=== PATIENT | male | born 1955 | race Caucasian/White ===

== ENCOUNTER 2017-02-12 17:10 | Emergency (ER) | payer OTHER ==
[2017-02-12 20:12] LABS: BASO % 0.1 % (0.2-1.2); EOS % 0.2 % (0.8-7.0); GRAN # 11.2 10_X3_uL (1.8-5.4); GRAN % 86.3 % (34.0-67.9); HEMATOCRIT 41.2 % (40-51); HEMOGLOBIN 14.1 g/dL (13.7-17.5); LYMPH # 0.8 10_X3_uL (1.3-3.6); LYMPH % 5.8 % (21.8-53.1); MEAN CORPUSCULAR HEMOGLOBIN 32.5 pg (27.0-33.0); MEAN CORPUSCULAR HGB CONC 34.2 g/dL (32.0-36.0); MEAN CORPUSCULAR VOLUME 94.9 fL (79-92); MONO % 7.6 % (5.3-12.2); PLATELET COUNT 179 x10_3/uL (163-337); RED BLOOD COUNT 4.34 x10_6/uL (4.6-6.1); RED CELL DISTRIBUTION WIDTH 12.6 % (11.6-14.4)
[2017-02-12 20:28] LABS: ALBUMIN 4.2 gm/dL (3.4-5.0); ALKALINE PHOSPHATASE 60 U/L (50-136); ALT/SGPT 25 U/L (7.53-40.17); AST/SGOT 40 U/L (6.66-35.34); BILIRUBIN,TOTAL 0.66 mg/dL (0.0-1.0); BLOOD UREA NITROGEN 17 mg/dL (7-18); CALCIUM 8.8 mg/dL (8.7-10.7); CARBON DIOXIDE 25 mmol/L (21-32); CREATININE 0.8 mg/dL (0.6-1.3); GLUCOSE,RANDOM 120 mg/dL (70-99); POTASSIUM 4.2 mmol/L (3.5-5.1); SODIUM 139 mmol/L (136-145)
== END 2017-02-12 22:14 | disposition short-term general hospital (02) ==
LOC: ER 17:10
PROVIDERS: Emergency Medicine
DX: S00.83XA Contusion of other part of head, initial encounter (principal); S20.219A Contusion of unspecified front wall of thorax, initial encounter; S40.029A Contusion of unspecified upper arm, initial encounter; S80.10XA Contusion of unspecified lower leg, initial encounter; S22.41XA Multiple fractures of ribs, right side, initial encounter for closed fracture; S32.019A Unspecified fracture of first lumbar vertebra, initial encounter for closed fracture; S32.029A Unspecified fracture of second lumbar vertebra, initial encounter for closed fracture; S32.059A Unspecified fracture of fifth lumbar vertebra, initial encounter for closed fracture; V80.010A Animal-rider injured by fall from or being thrown from horse in noncollision accident, initial encounter; W55.89XA Other contact with other mammals, initial encounter; M54.2 Cervicalgia; M54.9 Dorsalgia, unspecified; R07.89 Other chest pain
CPT/HCPCS: 36415; 70450; 71250; 72125; 72128; 72131; 80053; 85025; 90715; 93005; 96372; 96374; 96375; 96376; 99070; 99285-25; J1170